=== PATIENT | female | born 1965 | race Hispanic/Latino ===

== ENCOUNTER 2018-05-21 15:01 | Emergency (ER) | payer BC ==
[~2018-05-21] VITALS: Ht 152.4 cm; Wt 68.0 kg
--- OUTSIDE RECORDS SUMMARY | 2018-05-21 16:33 | XMS REPORT | Continuity of Care Document ---
Author Author [facility] Interface Address Unknown Phone Unavailable Problems Problem Status Onset Date Classification Date Reported Comments Source Anemia Active Problem 03/29/2016 2.16.840.1.492369.4.391.11.03912 HTN Active Problem 03/29/2016 2.16.840.1.506316.4.391.11.11377 Physical exam Active Diagnosis 10/12/2014 2.16.840.1.386984.4.391.11.47447 Tuberculosis screening Active Diagnosis 11/21/2015 2.16.840.1.315250.4.391.11.45937 Fatigue Active Diagnosis 12/01/2015 2.16.840.1.164473.4.391.11.84002 Acute sinusitis, unspecified Active Diagnosis 12/07/2015 2.16.840.1.357274.4.391.11.57321 Allergic rhinitis, unspecified Active Diagnosis 12/07/2015 2.16.840.1.334416.4.391.11.49020 Medications Medication Details Route Status Patient Instructions Ordering Provider Order Date Source codeine-guaifenesin 10 mg-100 mg5 mL Syrup Unknown NA Active 10-100 Nate 12/07/2015 2.16.840.1.842830.4.391.11.63336 Azithromycin 2 tablets on the first day, then 1 tablet daily for 4 days Orally Active 250 MG Orally Once a day Nate 12/05/2015 2.16.840.1.227630.4.391.11.77183 Fluticasone Propionate 1 spray in each nostril Nasally Active 50 MCG/ACT Nasally Once a day Nate 12/05/2015 2.16.840.1.627573.4.391.11.72236 Zithromax Z-Manny 2 tablets on the first day, then 1 tablet daily for 4 days Orally Active 250 MG Orally Once a day Mumtaz 10/01/2015 2.16.840.1.240135.4.391..39173 Lisinopril 1 tablet Orally Active 20 mg Orally Once a day Mumtaz 03/08/2014 2.16.840.1.130340.4.391..78851 Hemocyte Plus 1 capsule Orally Active 106-1 MG Orally twice a day (bid) Mumtaz 12/08/2013 2.16840.1.671124.4.391.68 Lisinopril 1 tablet Orally Active 20 mg Orally once a day Nate 06/08/2013 2.16840.1.048598.4.391..64847 Lisinopril TAKE ONE TABLET BY MOUTH DAILY NA Active 20 Nate 2.16840.1.487098.4.391..97878 Allergies, Adverse Reactions, Alerts Substance Category Reaction Severity Reaction type Status Date Reported Comments Source penicillin Adverse Reaction Info Not Available Adverse Reaction Active 12/05/2015 2.16840.1.455016.4.391..15197 Immunizations Immunization Date Given Site Status Last Updated Comments Source Results Order Name Results Value Reference Range Date Interpretation Comments Source Vital Signs Vital Sign Value Date Comments Source Weight 163 12/05/2015 2.16.840.1.944192.4.391.11.38152 Height 60.4 12/05/2015 2.16.840.1.059549.4.391..26647 Temperature Oral (F) 99.2 F 12/05/2015 2.16.840.1.704094.4.391.11.59109 Heart Rate 70 12/05/2015 2.16.840.1.782564.4.391.11.99668 Diastolic (mm Hg) 55 12/05/2015 2.16.840.1.840592.4.391.11.22723 Systolic (mm Hg) 140 12/05/2015 2.16.840.1.805891.4.391.11.52773 Weight 164.8 09/14/2014 2.16.840.1.181699.4.391.11.10376 Height 60.4 09/14/2014 2.16.840.1.429251.4.391.11.62835 Temperature Oral (F) 98.2 F 09/14/2014 2.16.840.1.590057.4.391.11.32183 Heart Rate 69 09/14/2014 2.16.840.1.334049.4.391.11.09395 Diastolic (mm Hg) 70 09/14/2014 2.16.840.1.055324.4.391.11.87593 Systolic (mm Hg) 130 09/14/2014 2.16.840.1.675048.4.391.11.52593 Encounters Location Location Details Encounter Type Encounter Number Reason For Visit Attending Provider ADM Date DC Date Status Source [facility] Unknown [id number] 12/07/2013 12/07/2013 2.16.840.1.008907.4.391.11. [facility] Unknown [id number] 12/07/2013 12/07/2013 2.16.840.1.299901.4.391.11. [facility] Unknown [id number] 12/07/2013 12/07/2013 2.16.840.1.430679.4.391.11. [facility] Unknown [id number] 12/07/2013 12/07/2013 2.16.840.1.276677.4.391.11. [facility] Unknown [id number] 12/07/2013 12/07/2013 2.16.840.1.209596.4.391.11. [facility] Unknown [id number] 12/07/2013 12/07/2013 2.16.840.1.628834.4.391.11.42109 [facility] Unknown [id number]-rhvf-[id number] 12/07/2013 12/07/2013 2.16.840.1.727801.4.391.11.91413 [facility] Unknown [id number]-651g4y3gs691 12/07/2013 12/07/2013 2.16.840.1.510069.4.391.11.28401 [facility] Unknown [id number]-341z5d6a32v9 12/07/2013 12/07/2013 2.16.840.1.137089.4.391.11.50320 [facility] Unknown [id number] 12/07/2013 12/07/2013 2.16.840.1.778368.4.391.11.01877 [facility] Unknown [id number] 12/07/2013 12/07/2013 2.16.840.1.953033.4.391.11.83690 [facility] Unknown [id number] 12/07/2013 12/07/2013 2.16.840.1.327863.4.391.11.93790 [facility] Unknown [id number] 12/07/2013 12/07/2013 2.16.840.1.236928.4.391.11.54588 [facility] Unknown [id number] 12/07/2013 12/07/2013 2.16.840.1.335410.4.391.11.32798 [facility] Unknown [id number] 12/08/2013 12/08/2013 2.16.840.1.621438.4.391.11.05952 [facility] Unknown [id number] 12/08/2013 12/08/2013 2.16.840.1.037102.4.391.11.06676 [facility] Unknown [id number]-08t2-f33b02k20bc5 12/08/2013 12/08/2013 2.16.840.1.719740.4.391.11.56523 [facility] Unknown [id number]-355bpebg6p00 12/08/2013 12/08/2013 2.16.840.1.716383.4.391.11.59959 [facility] Unknown [id number]-jqrg-kz30z71v4j1d 12/08/2013 12/08/2013 2.16.840.1.972783.4.391.11.72392 [facility] Unknown [id number] 12/08/2013 12/08/2013 2.16.840.1.707525.4.391.11.75523 [facility] Unknown [id number] 12/08/2013 12/08/2013 2.16.840.1.872391.4.391.11.10755 [facility] Unknown [id number] 12/08/2013 12/08/2013 2.16.840.1.051462.4.391.11.33483 [facility] Unknown [id number] 12/08/2013 12/08/2013 2.16.840.1.974149.4.391.11.66831 [facility] Unknown [id number]-qg79-oyqfg4k055e7 12/08/2013 12/08/2013 2.16.840.1.501139.4.391.11.11442 [facility] Unknown [id number] 12/08/2013 12/08/2013 2.16.840.1.463760.4.391.11.99072 [facility] Unknown [id number] 12/08/2013 12/08/2013 2.16.840.1.454724.4.391.11.03409 [facility] Unknown [id number]-x989-15hb22pa714a 12/08/2013 12/08/2013 2.16.840.1.302976.4.391.11.48370 [facility] Unknown [id number] 12/08/2013 12/08/2013 2.16.840.1.511910.4.391.11.70815 [facility] Unknown [id number]-0184u7fz2c95 12/09/2013 12/09/2013 2.16.840.1.668607.4.391.11.48308 [facility] Unknown [id number]-z80f-[id number] 12/09/2013 12/09/2013 2.16.840.1.147738.4.391.11.63346 [facility] Unknown [id number]-[id number] 12/09/2013 12/09/2013 2.16.840.1.043789.4.391.11. [facility] Unknown [id number]-1h8y-0b60-7b3344d645gz 12/09/2013 12/09/2013 2.16.840.1.325434.4.391.11.36435 [facility] Unknown [id number] 12/09/2013 12/09/2013 2.16.840.1.289320.4.391.11.07508 [facility] Unknown [id number]-c35s-[id number] 12/09/2013 12/09/2013 2.16.840.1.871852.4.391.11.49521 [facility] Unknown [id number] 12/09/2013 12/09/2013 2.16.840.1.401101.4.391.11.79415 [facility] Unknown [id number]-[id number] 12/09/2013 12/09/2013 2.16.840.1.114540.4.391.11.99226 [facility] Unknown [id number]-1v5g-[id number] 12/09/2013 12/09/2013 2.16.840.1.278090.4.391.11.88590 [facility] Unknown [id number]-azqn-s8657m0925se 12/09/2013 12/09/2013 2.16.840.1.634513.4.391.11.98423 [facility] Unknown [id number]-4jfp-b54h-52161tf1uk8v 12/09/2013 12/09/2013 2.16.840.1.835712.4.391.11.34682 [facility] Unknown [id number]-k42u-97axf76c5046 12/09/2013 12/09/2013 2.16.840.1.087852.4.391.11.05588 [facility] Unknown [id number]-85pm-[id number] 12/09/2013 12/09/2013 2.16.840.1.444090.4.391.11.20139 [facility] Unknown [id number]-53bw-4xbmyv4d5rj0 12/09/2013 12/09/2013 2.16.840.1.324185.4.391.11.37652 [facility] Unknown [id number]-0g2c-zue6-55lp5rloyc3o 12/09/2013 12/09/2013 2.16.840.1.684385.4.391.11.71666 [facility] Unknown [id number]-p85a-[id number] 12/09/2013 12/09/2013 2.16.840.1.110545.4.391.11.11221 [facility] Unknown [id number]-c0ks0c49nw03 12/09/2013 12/09/2013 2.16.840.1.725736.4.391.11.30648 [facility] Unknown q082d58d-21l9-724w-cwge-76e54rx70h79 12/09/2013 12/09/2013 2.16.840.1.409144.4.391.11.92895 [facility] Unknown [id number]-ie1j-[id number] 12/09/2013 12/09/2013 2.16.840.1.868872.4.391.11.22815 [facility] Unknown [id number]-o569-22wz-1540-7lq134r8j7d7 12/09/2013 12/09/2013 2.16.840.1.813872.4.391.11. [facility] Unknown [id number]-eg2v-1p6p05je5e37 12/09/2013 12/09/2013 2.16.840.1.998559.4.391.11. [facility] Unknown [id number] 12/09/2013 12/09/2013 2.16.840.1.009407.4.391.11.29660 [facility] Unknown [id number] 12/09/2013 12/09/2013 2.16.840.1.950343.4.391.11. [facility] Unknown [id number]-x535-182qbp088s0j 12/09/2013 12/09/2013 2.16.840.1.693143.4.391.11. [facility] Unknown [id number]-675t-0s12-1c8664211chu 12/09/2013 12/09/2013 2.16.840.1.435693.4.391.11.51233 [facility] Unknown [id number]-5w34-q4fh-x989e2z52719 12/09/2013 12/09/2013 2.16.840.1.669435.4.391.11.94635 [facility] Unknown [id number]-n401-2d09-j420-s8h68p70u6x6 12/09/2013 12/09/2013 2.16.840.1.087877.4.391.11. [facility] Unknown [id number]-[id number] 12/09/2013 12/09/2013 2.16.840.1.695217.4.391.11. [facility] Unknown [id number]-8fkv-y189-7s8z43pf72l1 02/13/2014 02/13/2014 2.16.840.1.410180.4.391.11. [facility] Unknown [id number]-dq27-[id number] 02/13/2014 02/13/2014 2.16.840.1.891508.4.391.11. [facility] Unknown [id number]-fj45-697o91e15ru0 02/13/2014 02/13/2014 2.16.840.1.295019.4.391.11.64695 [facility] Unknown [id number]-69m3-i867-909lb8891ck4 02/13/2014 02/13/2014 2.16.840.1.712749.4.391.11.69041 [facility] Unknown [id number]-[id number] 02/13/2014 02/13/2014 2.16.840.1.224468.4.391.11.94937 [facility] Unknown [id number]-xe3n-86370cn6x645 02/13/2014 02/13/2014 2.16.840.1.626201.4.391.11.63152 [facility] Unknown [id number]-z106-19m7-xrp2-kju0z274ahcu 02/13/2014 02/13/2014 2.16.840.1.696812.4.391.11.71655 [facility] Unknown [id number]-1b8v-64q6-7441-76s65zx970w0 02/13/2014 02/13/2014 2.16.840.1.056177.4.391.11.58996 [facility] Unknown [id number] 02/13/2014 02/13/2014 2.16.840.1.288442.4.391.11.29535 [facility] Unknown [id number] 02/13/2014 02/13/2014 2.16.840.1.969981.4.391.11.01199 [facility] Unknown [id number]-ge38-83mj-i015-3f2rf48h74i5 02/17/2014 02/17/2014 2.16.840.1.557157.4.391.11.62044 [facility] Unknown [id number] 02/17/2014 02/17/2014 2.16.840.1.195616.4.391.11.75820 [facility] Unknown [id number] 02/17/2014 02/17/2014 2.16.840.1.045356.4.391.11.21279 [facility] Unknown [id number]-[id number] 02/17/2014 02/17/2014 2.16.840.1.823925.4.391.11.80089 [facility] Unknown [id number]-f6x9-[id number] 02/17/2014 02/17/2014 2.16.840.1.296183.4.391.11.62463 [facility] Unknown [id number] 02/17/2014 02/17/2014 2.16.840.1.899744.4.391.11.66510 [facility] Unknown [id number]-[id number] 02/17/2014 02/17/2014 2.16.840.1.328831.4.391.11.35339 [facility] Unknown [id number]-12g8-0wuz-q83s-2i68ez2q0329 02/17/2014 02/17/2014 2.16.840.1.154142.4.391.11.59810 [facility] Unknown [id number]-6g33-9nm30hxk16i0 02/17/2014 02/17/2014 2.16.840.1.598805.4.391.11.85160 [facility] Unknown [id number]-z362-7176-1kp7-fx653tl30w2l 03/07/2014 03/07/2014 2.16.840.1.997961.4.391.11.15550 [facility] Unknown [id number] 03/07/2014 03/07/2014 2.16.840.1.042047.4.391.11.60452 [facility] Unknown [id number]-mc7e61t423cl 03/07/2014 03/07/2014 2.16.840.1.278456.4.391.11.85544 [facility] Unknown [id number]-ay2b-6lux-z164-h6i3cn8vd16d 03/07/2014 03/07/2014 2.16.840.1.618797.4.391.11.21009 [facility] Unknown [id number]-b61p-874f8a626t87 03/07/2014 03/07/2014 2.16.840.1.176111.4.391.11.39046 [facility] Unknown [id number] 03/07/2014 03/07/2014 2.16.840.1.015151.4.391.11.40608 [facility] Unknown [id number]-iy6z-37um-al65-5t20i85p51dj 03/07/2014 03/07/2014 2.16.840.1.726258.4.391.11.25238 [facility] Unknown [id number]-0v77-3827-943d6mzoip5m 03/07/2014 03/07/2014 2.16.840.1.585791.4.391.11.60498 [facility] Unknown [id number]-3316qi59168d 06/06/2014 06/06/2014 2.16.840.1.325878.4.391.11.62289 [facility] Unknown gt005q3h-wi3q-9eux-6091-f6p732p7v978 06/06/2014 06/06/2014 2.16.840.1.854097.4.391.11.83967 [facility] Unknown [id number] 06/06/2014 06/06/2014 2.16.840.1.082371.4.391.11.58796 [facility] Unknown [id number]-1gw5-4829-156c-j14g9z73d4o3 06/06/2014 06/06/2014 2.16.840.1.025408.4.391.11.84235 [facility] Unknown [id number]hm14w23e59 06/06/2014 06/06/2014 2.16.840.1.264673.4.391.11.14097 [facility] Unknown [id number]-qsye-40u1829n2d66 06/06/2014 06/06/2014 2.16.840.1.516948.4.391.11.12138 [facility] Unknown [id number]-9ap5-50k5-0ko1-278hp7qr1272 06/06/2014 06/06/2014 2.16.840.1.524457.4.391.11.12891 [facility] Unknown [id number]-t8qe-3576-00d0-3359562ughj6 06/06/2014 06/06/2014 2.16.840.1.002333.4.391.11.75832 [facility] Unknown [id number]-rqeo-6nw0-2qaf-990ia614yjm6 09/14/2014 09/14/2014 2.16.840.1.321684.4.391.11.70246 [facility] Unknown [id number]-ncd5-7xd6-e05o-wt40v094r87a 09/14/2014 09/14/2014 2.16.840.1.982704.4.391.11.07254 [facility] Unknown [id number]-p09n-0ebe9uggxl20 09/14/2014 09/14/2014 2.16.840.1.480497.4.391.11.92308 [facility] Unknown [id number]-e101-5r5n-y898-3447o10011n1 09/14/2014 09/14/2014 2.16.840.1.124845.4.391.11.19641 [facility] Unknown [id number]-3cf9-[id number] 09/14/2014 09/14/2014 2.16.840.1.065386.4.391.11.55791 [facility] Unknown [id number]-[id number] 09/14/2014 09/14/2014 2.16.840.1.105468.4.391.11.41598 [facility] Unknown [id number]-88l7-0dqp-66ah-yna69kx6n64y 09/14/2014 09/14/2014 2.16.840.1.961896.4.391.11.34337 [facility] Unknown [id number]-7k3a-2927-k5358s4a9485 09/14/2014 09/14/2014 2.16.840.1.235206.4.391.11.08998 [facility] Unknown [id number]-gs55-01s0-5k82-x12a6565g126 12/25/2014 12/25/2014 2.16.840.1.440482.4.391.11.05129 [facility] Unknown [id number]-pr8z-422536m2xt5l 12/25/2014 12/25/2014 2.16.840.1.562179.4.391.11.02557 [facility] Unknown [id number]-j16v-16ko-g11t-31bijaup1cnh 12/25/2014 12/25/2014 2.16.840.1.830723.4.391.11.86598 [facility] Unknown [id number]93 12/25/2014 12/25/2014 2.16.840.1.703306.4.391.11.16531 [facility] Unknown dz2rl8g5-21d7-5c9l-6v0a-927956n0487g 12/25/2014 12/25/2014 2.16.840.1.056983.4.391.11.26450 [facility] Unknown [id number]-h267-7t37-36c9-pip85549u735 12/25/2014 12/25/2014 2.16.840.1.223327.4.391.11.25665 [facility] Unknown rg5vdwi2-2010-8es7-9d7e-5ri96076g22s 12/25/2014 12/25/2014 2.16.840.1.795714.4.391.11.28286 [facility] Unknown [id number]-895q5uqns7c8 10/01/2015 10/01/2015 2.16.840.1.165805.4.391.11.38648 [facility] Unknown [id number]-e0mx-h1h8f58e648n 10/01/2015 10/01/2015 2.16.840.1.718166.4.391.11.69862 [facility] Unknown cx44qhgw-z5k9-1yh3-52j7-5dpi4m6e3mc4 10/01/2015 10/01/2015 2.16.840.1.196346.4.391.11.15217 [facility] Unknown [id number]-0oq2-2b39-b093-e78iwg134k07 10/01/2015 10/01/2015 2.16.840.1.310723.4.391.11.78544 [facility] Unknown aj15v29j-tkd5-72il-639d-0xy2394m30v9 10/01/2015 10/01/2015 2.16.840.1.345814.4.391.11.03016 [facility] Unknown [id number]-bt7e-66v9-wz02-1950907c502z 10/01/2015 10/01/2015 2.16.840.1.915925.4.391.11.94531 [facility] Unknown d29p8uwy-g19o-3s6n-237g-894882rd9lhp 10/01/2015 10/01/2015 2.16.840.1.118013.4.391.11.96485 [facility] Unknown [id number] 10/01/2015 10/01/2015 2.16.840.1.667242.4.391.11.52411 [facility] Unknown [id number]-9122-kf52-u1754z3oh2b1 10/01/2015 10/01/2015 2.16.840.1.058827.4.391.11.33684 [facility] Unknown rizgwl70-k673-4021-096n-[id number] 10/01/2015 10/01/2015 2.16.840.1.167497.4.391.11.87459 [facility] Unknown [id number] 10/01/2015 10/01/2015 2.16.840.1.765903.4.391.11.18631 [facility] Unknown [id number] 10/01/2015 10/01/2015 2.16.840.1.857543.4.391.11.04133 [facility] Unknown [id number] 10/01/2015 10/01/2015 2.16.840.1.249796.4.391.11.62717 [facility] Unknown [id number] 10/01/2015 10/01/2015 2.16.840.1.887051.4.391.11.27857 [facility] Unknown [id number] 11/16/2015 11/16/2015 2.16.840.1.632519.4.391.11.27637 [facility] Unknown [id number] 11/16/2015 11/16/2015 2.16.840.1.092312.4.391.11.91176 [facility] Unknown [id number] 11/16/2015 11/16/2015 2.16.840.1.887622.4.391.11.81608 [facility] Unknown [id number] 11/16/2015 11/16/2015 2.16.840.1.679711.4.391.11.40521 [facility] Unknown [id number] 11/16/2015 11/16/2015 2.16.840.1.400517.4.391.11.34988 [facility] Unknown [id number] 11/30/2015 11/30/2015 2.16.840.1.219560.4.391.11.07420 [facility] Unknown [id number] 11/30/2015 11/30/2015 2.16.840.1.796739.4.391.11.04403 [facility] Unknown [id number] 11/30/2015 11/30/2015 2.16.840.1.134613.4.391.11.38328 [facility] Unknown [id number] 11/30/2015 11/30/2015 2.16.840.1.614413.4.391.11.97597 [facility] Unknown [id number] 12/05/2015 12/05/2015 2.16.840.1.333363.4.391.11.34717 [facility] Unknown [id number] 12/05/2015 12/05/2015 2.16.840.1.004035.4.391.11.57403 [facility] Unknown [id number] 12/05/2015 12/05/2015 2.16.840.1.256595.4.391.11.07827 [facility] Unknown [id number] 12/07/2015 12/07/2015 2.16.840.1.428502.4.391.11.00462 [facility] Unknown [id number] 12/07/2015 12/07/2015 2.16.840.1.744464.4.391.11.35062 [facility] Unknown [id number] 03/28/2016 03/28/2016 2.16.840.1.289147.4.391.11.76431 Procedures Procedure Code Date Perfomer Comments Source
--- OUTSIDE RECORDS SUMMARY | 2018-05-21 16:33 | XMS REPORT ---
Author Author Mary Jane Pandya Organization [employer] Address Unknown Phone Unavailable Care Team Providers Care Reducing Machine Operator Name Role Phone Mary Jane Pandya CP Unavailable Allergies, Adverse Reactions, Alerts Substance Reaction Event Type penicillin Info Not Available Drug Allergy Encounters Encounter Location Date Unknown [facility] Dec 09, [address] [facility] Feb 13, [address] [facility] Feb 17, [address] [facility] Mar 07, [address] [facility] Dec 07, [address] [facility] Dec 08, [address] [facility] Dec 09, [address] [facility] June 06, [address] [facility] September 14, 2014 Problems Problem Type Condition ICD-9 Code Onset Dates Condition Status Problem HTN (hypertension) 401.9 Active Assessment Physical exam V70.9 Active Problem Anemia 285.9 Active Assessment HTN (hypertension) 401.9 Active Assessment Anemia 285.9 Active Medications Medication Code System Code Instructions Start Date End Date Status Dosage Lisinopril MEDISPAN [address]-51 20 mg Orally Once a day Mar 08, 2014 Active 1 tablet Hemocyte Plus MEDISPAN [address]-62 106-1 MG Orally twice a day (bid) Dec 08, 2013 Active 1 capsule Social History Social History Element Qualifiers Date Reported Tobacco Use: . Are you a: never smoker September 14, 2014 Do you drink alcohol? . Status: Yes, Type: Wine, How Often? Rarely, Quantity: 1 September 14, 2014 Vital Signs Date/Time: September 14, 2014 Weight 164.8 lbs Height 60.4 in Temperature 98.2 F Cardiac Monitoring Heart Rate 69 /min Blood Pressure Diastolic 70 mm Hg Blood Pressure Systolic 130 mm Hg Results COMPREHENSIVE METABOLIC PANEL CALCIUM(-8.6-10.2 mg/dL) 9.2 CARBON DIOXIDE(-19-30 mmol/L) 23 ALT(-6-29 U/L) 11 CREATININE(-0.50-1.10 mg/dL) 0.61 AST(-10-35 U/L) 16 eGFR NON-AFR. MEXICAN(-> OR=60 mL/min/1.73m2) 108 ALKALINE PHOSPHATASE(-33-115 U/L) 64 eGFR (-> OR=60 mL/min/1.73m2) 125 BILIRUBIN, TOTAL(-0.2-1.2 mg/dL) 0.3 BUN/CREATININE RATIO(-6-22 (calc)) NOT APPLICABLE ALBUMIN/GLOBULIN RATIO(-1.0-2.5 (calc)) 1.2 SODIUM(-135-146 mmol/L) 136 GLOBULIN(-1.9-3.7 g/dL (calc)) 3.4 POTASSIUM(-3.5-5.3 mmol/L) 4.1 GLUCOSE(-65-99 mg/dL) 85 CHLORIDE(-98-110 mmol/L) 104 ALBUMIN(-3.6-5.1 g/dL) 4.0 UREA NITROGEN (BUN)(-7-25 mg/dL) 12 PROTEIN, TOTAL(-6.1-8.1 g/dL) 7.4 CBC (H/H, RBC, INDICES, WBC, PLT) MCV(-80.0-100.0 fL) 90.3 HEMATOCRIT(-35.0-45.0 %) 36.0 MCHC(-32.0-36.0 g/dL) 33.8 MCH(-27.0-33.0 pg) 30.5 WHITE BLOOD CELL COUNT(-3.8-10.8 Thousand/uL) 7.3 HEMOGLOBIN(-11.7-15.5 g/dL) 12.2 RED BLOOD CELL COUNT(-3.80-5.10 Million/uL) 3.99 RDW(-11.0-15.0 %) 12.3 PLATELET COUNT(-140-400 Thousand/uL) 184 IRON, TIBC AND FERRITIN PANEL IRON, TOTAL(-40-190 mcg/dL) 90 IRON BINDING CAPACITY(-250-450 mcg/dL) 433 % SATURATION(-11-50 % (calc)) 21 FERRITIN(-10-232 ng/mL) 54 LIPID PANEL NON HDL CHOLESTEROL(- mg/dL (calc)) 98 LDL-CHOLESTEROL(-<130 mg/dL (calc)) 68 CHOL/HDLC RATIO(-< OR=5.0 (calc)) 2.7 HDL CHOLESTEROL(-> OR=46 mg/dL) 58 TRIGLYCERIDES(-<150 mg/dL) 151 CHOLESTEROL, TOTAL(-125-200 mg/dL) 156 TSH W/REFLEX TO FT4 TSH W/REFLEX TO FT4(- mIU/L) 1.72 Summary Purpose [employer] Submission
--- OUTSIDE RECORDS SUMMARY | 2018-05-21 16:34 | XMS REPORT ---
Author Author Obed Sullivan Organization [employer] Address Unknown Phone Unavailable Care Team Providers Care Pediatrics Teacher Name Role Phone Obed Sullivan Unavailable Encounters Encounter Location Date Unknown [facility] Dec 09, 2013 Unknown [facility] Feb 13, 2014 Unknown [facility] Dec 07, 2013 Unknown [facility] Dec 08, 2013 Unknown [facility] Dec 09, 2013 Problems Problem Type Condition ICD-9 Code Onset Dates Condition Status Problem HTN (hypertension) 401.9 Active Problem Anemia 285.9 Active Medications Medication Code System Code Instructions Start Date End Date Status Dosage Hemocyte Plus MEDISPAN [address]-44 106-1 MG Orally twice a day (bid) Dec 08, 2013 Active 1 capsule Social History Social History Element Qualifiers Date Reported Tobacco Use: . Are you a: never smoker Jan 27, 2014 Do you drink alcohol? . Status: Yes, Type: Wine, How Often? Rarely, Quantity: 1 Jan 27, 2014 Summary Purpose eClinicalWorks Submission
--- OUTSIDE RECORDS SUMMARY | 2018-05-21 16:34 | XMS REPORT ---
Author Author Obed Sullivan [facility] eClinicalWorks Address Unknown Phone Unavailable Care Team Providers Care Pillar Worker Name Role Phone Obed Sullivan Unavailable Encounters Encounter Location Date Unknown [facility] Dec 09, 2013 Unknown [facility] Feb 13, 2014 Unknown [facility] Feb 17, 2014 Unknown [facility] Mar 07, 2014 Unknown [facility] Dec 07, 2013 Unknown [facility] Dec 08, 2013 Unknown [facility] Dec 09, 2013 Unknown [facility] Dec 25, 2014 Unknown [facility] June 06, 2014 Unknown [facility] September 14, 2014 Unknown [facility] Dec 05, 2015 Unknown [facility] Dec 07, 2015 Unknown [facility] Nov 16, 2015 Unknown [facility] Nov 30, 2015 Unknown [facility] October 01, 2015 [facility] October 01, 2015 Problems Problem Type Condition ICD-9 Code Onset Dates Condition Status Problem HTN (hypertension) 401.9 Active Problem Anemia 285.9 Active Medications Medication Code System Code Instructions Start Date End Date Status Dosage codeine-guaifenesin 10 mg-100 mg5 mL Syrup Unknown 0 10-100 Dec 07, 2015 Active Unknown Social History Social History Element Qualifiers Date Reported Tobacco Use: . Are you a: never smoker Dec 05, 2015 Caffeine intake? . Status: Yes, What type: Coffee, Soft Drinks, Chocolate, Energy Drinks, 1 cup a day Dec 05, 2015 Do you exercise? . Answer: No Dec 05, 2015 Do you drink alcohol? . Status: Yes, Type: Wine, How Often? Rarely, Quantity: 1 Dec 05, 2015 Summary Purpose eClinicalWorks Submission
--- OUTSIDE RECORDS SUMMARY | 2018-05-21 16:34 | XMS REPORT ---
Author Author Obed Sullivan [facility] eClinicalWorks Address Unknown Phone Unavailable Care Team Providers Care Embroidery Assistant Name Role Phone Obed Sullivan Unavailable Encounters Encounter Location Date Unknown [facility] Dec 09, 2013 Unknown [facility] Dec 07, 2013 Unknown [facility] Dec 08, 2013 Unknown [facility] Dec 09, 2013 Problems Problem Type Condition ICD-9 Code Onset Dates Condition Status Problem HTN (hypertension) 401.9 Active Medications Medication Code System Code Instructions Start Date End Date Status D[facility] [address]-13 20 mg Orally once a day June 08, 2013 Active 1 tablet Social History Social History Element Qualifiers Date Reported Tobacco Use: . Are you a: never smoker Dec 08, 2013 Do you drink alcohol? . Status: Yes, Type: Wine, How Often? Rarely, Quantity: 1 Dec 08, 2013 Summary Purpose eClinicalWorks Submission
--- OUTSIDE RECORDS SUMMARY | 2018-05-21 16:34 | XMS REPORT ---
Author Author Admin, Parker Organization [facility] Address [address] [address] Phone Allergies, Adverse Reactions, Alerts Allergy Name Reaction Description Start Date Severity Status Provider PENICILLIN Critical Active Abilio Jerry MD Conditions or Problems Problem Name Problem Code Onset Date Status Entry Date Provider Comment Standard Description Annotate Muscle spasm, trapezius 728.85 Active Abilio Jerry MD Spasm of muscle Dermatitis 692.9 Active Abilio Jerry MD Contact dermatitis and other eczema, unspecified cause Obesity Active Sarah Lam MD Obesity, unspecified Menorrhagia 626.2 Active Abilio Jerry MD Excessive or frequent menstruation Fatigue 780.79 Active Abilio Jerry MD Other malaise and fatigue Hypertension 401.1 Active Abilio Jerry MD Benign essential hypertension Earache 388.70 Active Abilio Jerry MD Otalgia, unspecified Medication List Medication Instructions Start Date Stop Date Generic Name NDC Status Provider Patient Instruction ILIANA-BE 0.35 MG ORAL TABLET 1 po Every daily NORETHINDRONE 79519836023 Active Sarah Lam MD Active CYCLOBENZAPRINE HCL 10 MG ORAL TABLET 1 By Mouth three times a day as needed for muscle spasm CYCLOBENZAPRINE HCL 01698056346 Active Abilio Jerry MD Active HYDROCHLOROTHIAZIDE 25 MG ORAL TABLET 1 by mouth every day HYDROCHLOROTHIAZIDE 29254938712 Active Abilio Jerry MD Active LISINOPRIL 20 MG ORAL TABLET 1 by mouth every day LISINOPRIL 07706025599 Active Abilio Jerry MD Active LISINOPRIL 20 MG ORAL TABLET 1 by mouth every day LISINOPRIL 90667759311 Active Abilio Jerry MD Active Vital Signs Date Name Value Unit Range Description blood pressure, diastolic 78 mm[Hg] BP mcclain blood pressure, systolic 129 mm[Hg] BP sys height E&M 60 [in_us] Bdy height pulse rate E&M 59 /min Heart rate respiratory rate E&M 18 /min Resp rate temperature E&M 98.7 [degF] Body temperature weight E&M 150.38 [lb_av] Weight Measured blood pressure, diastolic 76 mm[Hg] BP mcclain blood pressure, systolic 133 mm[Hg] BP sys height E&M 60 [in_us] Bdy height pulse rate E&M 58 /min Heart rate respiratory rate E&M 18 /min Resp rate temperature E&M 98.5 [degF] Body temperature weight E&M 157.13 [lb_av] Weight Measured height E&M 60 [in_us] Bdy height blood pressure, diastolic 55 mm[Hg] BP mcclain blood pressure, systolic 138 mm[Hg] BP sys height E&M 60 [in_us] Bdy height pulse rate E&M 70 /min Heart rate respiratory rate E&M 17 /min Resp rate temperature E&M 99.3 [degF] Body temperature weight E&M 163.25 [lb_av] Weight Measured blood pressure, diastolic 74 mm[Hg] BP mcclain blood pressure, systolic 145 mm[Hg] BP sys height E&M 60 [in_us] Bdy height pulse rate E&M 75 /min Heart rate respiratory rate E&M 18 /min Resp rate temperature E&M 99.0 [degF] Body temperature weight E&M 162.40 [lb_av] Weight Measured Diagnostic Results Date Name Value Unit Range Description Lab Report: CBC With Differential/Platelet - Hematology hematocrit, blood 29.0 % 34.0-46.6 Lab Report: CBC With Differential/Platelet - Chemistry Absolute Neutrophils 5.0 X10E3/UL 10*3/uL 1.4-7.0 Lab Report: CBC With Differential/Platelet - Hematology lymphocytes as percent of blood leukocytes 21 % Not Estab. neutrophils as percent of blood leukocytes 70 % Not Estab. mean corpuscular volume, RBC 77 fL 79-97 basophils as percent of blood leukocytes 0 % Not Estab. basophil count, absolute 0.0 x10E3/uL 0.0-0.2 monocytes as percent of blood leukocytes 7 % Not Estab. Eosinophil Absolute Count 0.1 X10E3/UL 10*3/uL 0.0-0.4 eosinophils as percent of blood leukocytes 2 % Not Estab. mean corpuscular hemoglobin, RBC 24.6 pg 26.6-33.0 red blood cell distribution width 19.0 % 12.3-15.4 mean corpuscular hemoglobin concentration, RBC 32.1 G/DL % 31.5-35.7 leukocyte count, blood 7.1 X10E3/UL 10*3/mm3 3.4-10.8 monocyte count, blood, automated 0.5 X10E3/UL 10*3/uL 0.1-0.9 erythrocyte (RBC) count 3.78 X10E6/UL 10*6/mm3 3.77-5.28 Lab Report: CBC With Differential/Platelet - Chemistry immature granulocytes, percentage of total cells, blood 0 % Not Estab. Lab Report: CBC With Differential/Platelet - Hematology platelet count 261 X10E3/UL 10*3/mm3 561-302 6560/01/08 lymphocyte count, blood, automated 1.5 X10E3/UL 10*3/mm3 0.7-3.1 hemoglobin, blood 9.3 g/dL 11.1-15.9 Encounters Date Encounter Provider Code Facility 09:36:58 LIFESTYLE COORDINATOR Est Patient Exp Problem - 51244 Abilio Jerry MD CPT-64574 [facility] 14:13:02 CDT Est Patient Exp Problem - 58149 Abilio Jerry MD CPT-40975 [facility] 15:39:03 CDT Est Patient Problem Focus - 69120 Sarah Lam MD CPT-90407 [facility] 15:49:11 LIFESTYLE COORDINATOR Est Patient Problem Focus - 74783 Sarah Lam MD CPT-94231 [facility] 15:16:55 LIFESTYLE COORDINATOR Est Patient Exp Problem - 32248 Abilio Jerry MD CPT-38640 [facility] 14:07:05 LIFESTYLE COORDINATOR Est Patient Exp Problem - 76953 Abilio Jerry MD CPT-77901 [facility] 13:39:57 LIFESTYLE COORDINATOR New Patient Detailed - 58270 Abilio Jerry MD CPT-61117 [facility] Procedures Code Procedure Name Date Entry Date Standard Description CPT-05021 Endometrial Biopsy 15:39:03 CDT CPT-88087 Urinalysis - - In House 15:39:03 CDT
--- OUTSIDE RECORDS SUMMARY | 2018-05-21 16:34 | XMS REPORT ---
Author Author Obed Sullivan [facility] eClinicalWorks Address Unknown Phone Unavailable Care Team Providers Care Clinical Resource Manager Name Role Phone Obed Sullivan Unavailable Encounters Encounter Location Date Unknown [facility] Dec 09, 2013 Unknown [facility] Feb 13, 2014 Unknown [facility] Feb 17, 2014 Unknown [facility] Mar 07, 2014 Unknown [facility] Dec 07, 2013 Unknown [facility] Dec 08, 2013 Unknown [facility] Dec 09, 2013 Unknown [facility] Dec 25, 2014 [facility] June 06, 2014 [facility] September 14, 2014 [facility] Mar 28, 2016 [facility] Dec 05, 2015 [facility] Dec 07, 2015 [facility] Nov 16, 2015 [facility] Nov 30, 2015 [facility] October 01, 2015 [facility] October 01, 2015 Problems Problem Type Condition ICD-9 Code Onset Dates Condition Status Problem HTN (hypertension) 401.9 Active Problem Anemia 285.9 Active Medications Medication Code System Code Instructions Start Date End Date Status Dosage Lisinopril [facility] 64519929674 20 Active TAKE ONE TABLET BY MOUTH DAILY Social History Social History Element Qualifiers Date Reported Tobacco Use: . Are you a: never smoker Mar 23, 2015 Caffeine intake? . Status: Yes, What type: Coffee, Soft Drinks, Chocolate, Energy Drinks, 1 cup a day Mar 23, 2015 Do you exercise? . Answer: No Mar 23, 2015 Do you drink alcohol? . Status: Yes, Type: Wine, How Often? Rarely, Quantity: 1 Mar 23, 2015 Summary Purpose eClinicalWorks Submission
--- OUTSIDE RECORDS SUMMARY | 2018-05-21 16:34 | XMS REPORT ---
Author Author Obed Sullivan [facility] eClinicalWorks Address Unknown Phone Unavailable Care Team Providers Care Continuing Education Instructor Name Role Phone Obed Sullivan Unavailable Encounters Encounter Location Date Unknown [facility] Dec 09, 2013 Unknown [facility] Feb 13, 2014 Unknown [facility] Feb 17, 2014 Unknown [facility] Mar 07, 2014 Unknown [facility] Dec 07, 2013 Unknown [facility] October 01, 2015 Unknown [facility] Dec 08, 2013 Unknown [facility] October 01, 2015 Unknown [facility] Dec 09, 2013 Unknown [facility] Dec 25, 2014 Unknown [facility] June 06, 2014 Unknown [facility] September 14, 2014 Problems Problem Type Condition ICD-9 Code Onset Dates Condition Status Problem HTN (hypertension) 401.9 Active Problem Anemia 285.9 Active Medications Medication Code System Code Instructions Start Date End Date Status Dosage Lisinopril [facility] 83799925765 20 Active TAKE ONE TABLET BY MOUTH [...]
--- OUTSIDE RECORDS SUMMARY | 2018-05-21 16:34 | XMS REPORT ---
Author Author Obed Sullivan [facility] eClinicalWorks Address Unknown Phone Unavailable Care Team Providers Care Box Sealing Machine Operator Name Role Phone Obed Sullivan Unavailable Encounters Encounter Location Date Unknown [facility] Dec 09, 2013 Unknown [facility] Dec 07, 2013 Unknown [facility] Dec 08, 2013 Unknown [facility] Dec 09, 2013 Problems Problem Type Condition ICD-9 Code Onset Dates Condition Status Problem HTN (hypertension) 401.9 Active Medications Medication Code System Code Instructions Start Date End Date Status Dos[facility] [address]-90 20 mg Orally once a day June 08, 2013 Active 1 tablet Social History Social History Element Qualifiers Date Reported Tobacco Use: . Are you a: never smoker Dec 08, 2013 Do you drink alcohol? . Status: Yes, Type: Wine, How Often? Rarely, Quantity: 1 Dec 08, 2013 Summary Purpose eClinicalWorks Submission
--- OUTSIDE RECORDS SUMMARY | 2018-05-21 16:34 | XMS REPORT ---
Author Author Obed Sullivan [facility] eClinicalWorks Address Unknown Phone Unavailable Care Team Providers Care Tank Cleaner Name Role Phone Obed Sullivan Unavailable Allergies, Adverse Reactions, Alerts Substance Reaction Event Type penicillin Info Not Available Drug Allergy Encounters Encounter Location Date Unknown [facility] Dec 09, 2013 [facility] Feb 13, 2014 Unknown [facility] Feb 17, 2014 Unknown [facility] Mar 07, 2014 Unknown [facility] Dec 07, 2013 Unknown [facility] Dec 08, 2013 [facility] Dec 09, 2013 [facility] Dec 25, 2014 [facility] June 06, 2014 [facility] September 14, 2014 [facility] Dec 05, 2015 [facility] Nov 16, 2015 [facility] Nov 30, 2015 [facility] October 01, 2015 [facility] October 01, 2015 Problems Problem Type Condition ICD-9 Code Onset Dates Condition Status Problem HTN (hypertension) 401.9 Active Assessment Acute sinusitis, unspecified J01.90 Active Problem Anemia 285.9 Active Assessment Allergic rhinitis, unspecified J30.9 Active Medications Medication Code System Code Instructions Start Date End Date Status Dosage Azithromycin [facility] [address]-31 250 MG Orally Once a day Dec 05, 2015 Dec 10, 2015 Active 2 tablets on the first day, then 1 tablet daily for 4 days [address]op[address] [facility] 35310285809 20 Active TAKE ONE TABLET BY MOUTH DAILY Fluticasone Propionate [facility] [address]-07 50 MCG/ACT Nasally Once a day Dec 05, 2015 Active 1 spray in each nostril Social History Social History Element Qualifiers Date [...] Often? Rarely, Quantity: 1 Dec 05, 2015 Vital Signs Date/Time: Dec 05, 2015 Weight 163 lbs Height 60.4 in Temperature 99.2 F Cardiac Monitoring Heart Rate 70 /min Blood Pressure Diastolic 55 mm Hg Blood Pressure Systolic 140 mm Hg Summary Purpose eClinicalWorks Submission
--- OUTSIDE RECORDS SUMMARY | 2018-05-21 16:34 | XMS REPORT ---
Author Author Obed Sullivan Organization [employer] Address Unknown Phone Unavailable Care Team Providers Care Real Estate Agency Principal Name Role Phone Obed Sullivan CP Unavailable Encounters Encounter Location Date Unknown [facility] Dec 09, [address] [facility] Dec 07, [address] [facility] Dec 08, [address] [facility] Dec 09, 2013 Problems Problem Type Condition ICD-9 Code Onset Dates Condition Status Assessment Annual physical exam V70.0 Active Problem HTN (hypertension) 401.9 Active Social History Social History Element Qualifiers Date Reported Tobacco Use: . Are you a: never smoker Dec 08, 2013 Do you drink alcohol? . Status: Yes, Type: Wine, How Often? Rarely, Quantity: 1 Dec 08, 2013 Summary Purpose eClinicalWorks Submission
--- OUTSIDE RECORDS SUMMARY | 2018-05-21 16:34 | XMS REPORT ---
Author Author Obed Sullivan [facility] eClinicalWorks Address Unknown Phone Unavailable Care Team Providers Care Salon Shampoo Assistant Name Role Phone Obed Sullivan Unavailable Encounters Encounter Location Date Unknown [facility] Dec 09, 2013 Unknown [facility] Feb 13, 2014 Unknown [facility] Feb 17, 2014 Unknown [facility] Mar 07, 2014 Unknown [facility] Dec 07, 2013 Unknown [facility] Dec 08, 2013 Unknown [facility] Dec 09, 2013 Unknown [facility] Dec 25, 2014 Unknown [facility] June 06, 2014 Unknown [facility] September 14, 2014 Unknown [facility] Nov 16, 2015 Unknown [facility] Nov 30, 2015 Unknown [facility] October 01, 2015 Unknown [facility] October 01, 2015 Problems Problem Type Condition ICD-9 Code Onset Dates Condition Status Problem HTN (hypertension) 401.9 Active Assessment Fatigue R53.83 Active Problem Anemia 285.9 Active Social History Social History Element Qualifiers [...]
--- OUTSIDE RECORDS SUMMARY | 2018-05-21 16:34 | XMS REPORT ---
Author Author Obed Sullivan [facility] eClinicalWorks Address Unknown Phone Unavailable Care Team Providers Care Hydrometer Finisher Name Role Phone Obed Sullivan Unavailable Encounters Encounter Location Date Unknown [facility] Dec 09, 2013 Unknown [facility] Feb 13, 2014 Unknown [facility] Feb 17, 2014 Unknown [facility] Mar 07, 2014 Unknown [facility] Dec 07, 2013 Unknown [facility] Dec 08, 2013 Unknown [facility] Dec 09, 2013 Unknown [facility] Dec 25, 2014 Unknown [facility] June 06, 2014 Unknown [facility] September 14, 2014 Unknown [facility] Nov 16, 2015 Unknown [facility] October 01, 2015 Unknown [facility] October 01, 2015 Problems Problem Type Condition ICD-9 Code Onset Dates Condition Status Problem HTN (hypertension) 401.9 Active Assessment Tuberculosis screening Z11.1 Active Problem Anemia 285.9 Active Social History [...]
--- OUTSIDE RECORDS SUMMARY | 2018-05-21 16:34 | XMS REPORT ---
Author Author Obed Sullivan Organization [employer]Works Address Unknown Phone Unavailable Care Team Providers Care Funeral Location Manager Name Role Phone Obed Sullivan Unavailable Encounters Encounter Location Date Unknown [facility] Dec 09, 2013 Unknown [facility] Dec 07, 2013 Unknown [facility] Dec 08, 2013 Unknown [facility] Dec 09, 2013 Problems Problem Type Condition ICD-9 Code Onset Dates Condition Status Assessment Anemia 285.9 Active Problem HTN (hypertension) 401.9 Active Medications Medication Code System Code Instructions Start Date End Date Status Dosage Hemocyte Plus MEDISPAN [address]-90 106-1 MG Orally Once a day Dec 08, 2013 Active 1 capsule Social History Social History Element Qualifiers Date Reported Tobacco Use: . Are you a: never smoker Dec 08, 2013 Do you drink alcohol? . Status: Yes, Type: Wine, How Often? Rarely, Quantity: 1 Dec 08, 2013 Summary Purpose eClinicalWorks Submission
--- OUTSIDE RECORDS SUMMARY | 2018-05-21 16:34 | XMS REPORT ---
Author Author Obed Sullivan Organization eClinicalWorks Address Unknown Phone Unavailable Care Team Providers Care Foot Doctor Name Role Phone Obed Sullivan Unavailable Encounters Encounter Location Date Unknown [facility] Dec 09, 2013 Unknown [facility] Feb 13, 2014 Unknown [facility] Feb 17, 2014 Unknown [facility] Dec 07, 2013 Unknown [facility] Dec 08, 2013 Unknown [facility] Dec 09, 2013 Problems Problem Type Condition ICD-9 Code Onset Dates Condition Status Problem HTN (hypertension) 401.9 Active Problem Anemia 285.9 Active Medications Medication Code System Code Instructions Start Date End Date Status Dosage Hemocyte Plus MEDISPAN [address]-53 106-1 MG Orally twice a day (bid) Dec 08, 2013 Active 1 capsule Social History Social History Element Qualifiers Date Reported Tobacco Use: . Are you a: never smoker Jan 27, 2014 Do you drink alcohol? . Status: Yes, Type: Wine, How Often? Rarely, Quantity: 1 Jan 27, 2014 Summary Purpose eClinicalWorks Submission
--- OUTSIDE RECORDS SUMMARY | 2018-05-21 16:34 | XMS REPORT ---
Author Author Mary Jane Pandya Organization eClinicalWorks Address Unknown Phone Unavailable Care Team Providers Care Enrollment Representative Name Role Phone Mary Jane Pandya Unavailable Encounters Encounter Location Date Unknown [facility] Dec 09, 2013 Unknown [facility] Feb 13, 2014 Unknown [facility] Feb 17, 2014 Unknown [facility] Mar 07, 2014 Unknown [facility] Dec 07, 2013 Unknown [facility] October 01, 2015 Unknown [facility] Dec 08, 2013 Unknown [facility] October 01, 2015 Unknown [facility] Dec 09, 2013 Unknown [facility] Dec 25, 2014 Unknown [facility] June 06, 2014 Unknown [facility] September 14, 2014 Problems Problem Type Condition ICD-9 Code Onset Dates Condition Status Problem HTN (hypertension) 401.9 Active Problem Anemia 285.9 Active Medications Medication Code System Code Instructions Start Date End Date Status Dosage Zithromax Z-Manny MEDISPAN [address]-07 250 MG Orally Once a day October 01, 2015 October 06, 2015 Active 2 tablets on the first day, then 1 tablet daily for 4 days Social History Social History Element Qualifiers Date [...]
== END 2018-05-21 15:43 | disposition home or self-care (01) ==
LOC: FSED 15:01
DX: R11.2 Nausea with vomiting, unspecified (principal); K52.9 Noninfective gastroenteritis and colitis, unspecified
CPT/HCPCS: 99282

== ENCOUNTER 2020-11-23 20:14 | Emergency (ER) | payer BC ==
[~2020-11-23] VITALS: Ht 152.4 cm; Wt 68.0 kg
[2020-11-23] MEDS ORDERED: IBUPROFEN600 MG PO (21:57)
== END 2020-11-23 22:15 | disposition home or self-care (01) ==
LOC: FSED 20:51
DX: M79.671 Pain in right foot (principal); M79.18 Myalgia, other site; W22.03XA Walked into furniture, initial encounter; I10 Essential (primary) hypertension
CPT/HCPCS: 99283